=== PATIENT | female | born 1965 | race Caucasian/White ===

== ENCOUNTER 2016-07-07 00:28 | Observation (INO) | payer BC ==
[~2016-07-07] VITALS: Ht 165.1 cm; Wt 113.6 kg
[~2016-07-07 00:28] MED LIST: LEVO25TA PO; OXYC-57 PO
[2016-07-07 00:57] LABS: BASO % 0.6 %; BASO ABS # 0.04 K/uL (0-0.2); COMPLETE YES; EOS % 5.6 %; IG% 0.1 %; LYMPH % 40.9 %; LYMPH ABS # 2.91 K/uL (1.2-3.4); MEAN CELL VOLUME 86.6 fL (80-100); MEAN CORPUSCULAR HEMOGLOBIN 28.9 pg (25-34); MEAN CORPUSCULAR HGB CONC 33.4 g/dl (32-36); MEAN PLATELET VOLUME 9.8 fL (7.4-10.4); MONO % 6.6 %; NEUT % 46.2 %; PLATELET COUNT 230 K/uL (130-400); RED BLOOD COUNT 4.39 M/uL (4.2-5.4); WHITE BLOOD COUNT 7.11 K/uL (4.8-10.8)
[2016-07-07] MEDS ORDERED: OPTIRAY 320 IV PRN (01:00)
[2016-07-07 01:04] LABS: ISTAT HEMOGLOBIN 12.9 g/dl (12.0-16.0); ISTAT IONIZED CALCIUM 1.27 mmol/l (1.12-1.32)
[2016-07-07 01:14] LABS: ALT/SGPT 33 U/L (12-78); AST/SGOT 18 U/L (15-37); BLOOD UREA NITROGEN 15 mg/dl (7-18); BUN/CREATININE RATIO 15.2 (10-20); CALCIUM 8.7 mg/dl (8.5-10.1); CARBON DIOXIDE 25 mmol/L (21-32); CHLORIDE 108 mmol/L (98-107); GLUCOSE 107 mg/dl (70-99); SODIUM 143 mmol/L (136-145)
[2016-07-07 01:19] LABS: ALKALINE PHOSPHATASE 97 U/L (45-117)
[2016-07-07] MEDS ORDERED: LIDOCAINE HCL 2% VISC SOLN 20 ML UDC PO STA (02:20)
[2016-07-07] MEDS ORDERED: ALUMINUM/MAGNESIUM SUSP 30 ML UDC PO STA (02:20)
[2016-07-07] MEDS ORDERED: PANTOprazole SOD 40 MG TAB PO STA ×2 (02:20→03:17)
[2016-07-07] MEDS ORDERED: KETOROLAC TROMETHAMINE 30 MG/ML VIAL IV STA (02:26)
[2016-07-07] MEDS ORDERED: DiphenhydrAMINE HCL 50 MG/ML VIAL IV STA (02:26)
[2016-07-07] MEDS ORDERED: METOCLOPRAMIDE HCL INJ 5 MG/ML 2 ML VIAL IV STA (02:26)
--- NOTE | 2016-07-07 02:35 | EMERGENCY ROOM VISIT NOTE ---
History First contact with patient: 00:34 Chief Complaint: CHEST PAIN Stated Complaint: CHEST PAIN Nursing Triage Summary: c/o a lim for a few days and earlier tonight awoke with a lim and left sided neck pain. while at work developed mid sternal cp rates pain at 3 at present. History of Present Illness The patient is a 50 year old female who presents to the Emergency Room with complaints of midsternal chest pain that radiates to her back and to her left shoulder since 11:30 at night while at work. 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 Patient states for the past 3 days she's had some mild headaches with neck pain and cough and puffy eyes. She states tonight she got nauseous with the chest pain and was concerned and came here. She describes pain as pressure, 4-10 to the mid chest. Nothing makes it better or worse. She has some mild dyspnea. Her father from a thoracic aneurysm. She's not had an echocardiogram or stress test. She's had SVT in the past. Patient denies fever , chills, abdominal pain, leg pain, recent travel, tobacco use, vomiting, diarrhea. Patient says she chronically has some mild leg swelling unchanged. No family history of blood clots. Review of Systems See HPI for pertinent positives & negatives. A total of 10 systems reviewed and were otherwise negative. 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) (3) Depression (4) Hirsutism (5) Hypothyroidism (6) Kidney stone (7) Metabolic syndrome X (8) Migraine headache (9) SVT (supraventricular tachycardia) Surgical Problems: (1) Status post cholecystectomy (2) Status post tubal ligation Family History Cancer Social History Smoking Status: Never Smoker Smokeless Tobacco Use: No Alcohol Use: none Drug Use: none Marital Status: Housing Status: lives with family Occupation Status: employed Current/Historical Medications Scheduled Levothyroxine Sodium (Synthroid), 37.5 MCG PO DAILY Allergies Coded Allergies: No Known Allergies (Unverified , 07/07/16) Physical Exam Vital Signs Date Time Temp Pulse Resp B/P Pulse Ox O2 Delivery O2 Flow Rate FiO2 07/07/16 01:39 74 18 117/69 95 Room Air 07/07/16 00:48 83 18 153/93 96 Room Air 07/07/16 00:42 85 07/07/16 00:41 96 Room Air 07/07/16 00:41 95 Room Air 07/07/16 00:32 36.6 81 18 151/96 96 Room Air Physical Exam VITALS: Vitals are noted on the nurse's note and reviewed by myself. Vital signs stable. GENERAL: Pleasant female, in no acute distress, nondiaphoretic, well-developed well-nourished. SKIN: The skin was without rashes, erythema, edema, or bruising. There is no tenting of the skin. Capillary reflex less than 2 seconds. HEAD: Normocephalic atraumatic. EARS: External auditory canals clear, tympanic membranes pearly mccall without erythema or effusion bilaterally. EYES: Pupils equal round and reactive to light and accommodation. Conjunctivae without injection, sclerae without icterus. Extraocular movements intact. NOSE: Patent, turbinates without inflammation or discharge. MOUTH: Mucous membranes moist. Pharynx without erythema or exudate. Uvula midline. Airway patent. Tongue does not deviate. NECK: Supple without nuchal rigidity. No lymphadenopathy. No thyromegaly. Cervical spine is nontender. No JVD. HEART: Regular rate and rhythm without murmurs gallops or rubs. Chest nontender to palpation LUNGS: Clear to auscultation bilaterally without wheezes, rales or rhonchi. No dullness to percussion. No retractions or accessory muscle use. ABDOMEN: Positive bowel sounds x 4. Normal tympanic percussion. Soft, nontender, without masses or organomegaly. Carter sign negative. No guarding or rebound tenderness. MUSCULOSKELETAL: No muscle atrophy, erythema, or edema noted. NEURO: Patient was alert and oriented to person place and time. Normal sensation to light and sharp touch. No focal neurological deficits. Medical Decision & Procedures Laboratory Results 07/07/16 00:43 Red Blood Count 4.39, Mean Corpuscular Volume 86.6, Mean Corpuscular Hemoglobin 28.9, Mean Corpuscular Hemoglobin Concent 33.4, Mean Platelet Volume 9.8, Neutrophils (%) (Auto) 46.2, Lymphocytes (%) (Auto) 40.9, Monocytes (%) (Auto) 6.6, Eosinophils (%) (Auto) 5.6, Basophils (%) (Auto) 0.6, Neutrophils # (Auto) 3.28, Lymphocytes # (Auto) 2.91, Monocytes # (Auto) 0.47, Eosinophils # (Auto) 0.40, Basophils # (Auto) 0.04 07/07/16 00:43 Test 07/07/16 00:43 07/07/16 00:47 White Blood Count 7.11 K/uL (4.8-10.8) Red Blood Count 4.39 M/uL (4.2-5.4) Hemoglobin 12.7 g/dL (12.0-16.0) Hematocrit 38.0 % (37-47) Mean Corpuscular Volume 86.6 fL (80-100) Mean Corpuscular Hemoglobin 28.9 pg (25-34) Mean Corpuscular Hemoglobin Concent 33.4 g/dl (32-36) Platelet Count 230 K/uL (130-400) Mean Platelet Volume 9.8 fL (7.4-10.4) Neutrophils (%) (Auto) 46.2 % Lymphocytes (%) (Auto) 40.9 % Monocytes (%) (Auto) 6.6 % Eosinophils (%) (Auto) 5.6 % Basophils (%) (Auto) 0.6 % Neutrophils # (Auto) 3.28 K/uL (1.4-6.5) Lymphocytes # (Auto) 2.91 K/uL (1.2-3.4) Monocytes # (Auto) 0.47 K/uL (0.11-0.59) Eosinophils # (Auto) 0.40 K/uL (0-0.5) Basophils # (Auto) 0.04 K/uL (0-0.2) RDW Standard Deviation 46.0 fL (36.4-46.3) RDW Coefficient of Variation 14.4 % (11.5-14.5) Immature Granulocyte % (Auto) 0.1 % Immature Granulocyte # (Auto) 0.01 K/uL (0.00-0.02) Est Creatinine Clear Calc Drug Dose 82.7 ml/min Estimated GFR () 75.0 Estimated GFR (Non- 64.7 BUN/Creatinine Ratio 15.2 (10-20) Calcium Level 8.7 mg/dl (8.5-10.1) Total Bilirubin 0.3 mg/dl (0.2-1) Direct Bilirubin < 0.1 mg/dl (0-0.2) Aspartate Amino Transf (AST/SGOT) 18 U/L (15-37) Alanine Aminotransferase (ALT/SGPT) 33 U/L (12-78) Alkaline Phosphatase 97 U/L (45-117) Troponin I < 0.015 ng/ml (0-0.045) Total Protein 7.3 gm/dl (6.4-8.2) Albumin 3.4 gm/dl (3.4-5.0) Lipase 213 U/L (73-393) Bedside Hemoglobin 12.9 g/dl (12.0-16.0) Bedside Hematocrit 38 % (37-47) Bedside Sodium 142 mEq/L (135-144) Bedside Potassium 4.0 mEq/L (3.3-5.0) Bedside Chloride 105 mEq/L (101-112) Bedside Total CO2 24 mEq/l (24-31) Anion Gap 18.0 mmol/L (16-25) Bedside Blood Urea Nitrogen 16 mg/dl (7-18) Bedside Creatinine 1.0 mg/dl (0.6-1.3) Bedside Glucose (other) 106 mg/dl (70-99) Bedside Ionized Calcium (Ciera) 1.27 mmol/l (1.12-1.32) Medications Administered Medications (Trade) Dose Ordered Sig/Kezia Route Start Time Stop Time Status Last Admin Dose Admin Lidocaine HCl (Viscous Lidocaine 2% Soln) 10 ml NOW STAT PO 07/07/16 02:20 07/07/16 02:21 DC 07/07/16 02:29 10 ML Al Hydroxide/Mg Hydroxide (Maalox Susp) 30 ml NOW STAT PO 07/07/16 02:20 07/07/16 02:21 DC 07/07/16 02:29 30 ML Pantoprazole Sodium (Protonix Tab) 40 mg NOW STAT PO 07/07/16 02:20 07/07/16 02:21 DC 07/07/16 02:29 40 MG ED Course Prior records/ancillary studies reviewed. Triage Nursing notes reviewed. The patient's history was concerning for chest pain. Differential diagnosis: Etiologies such as cardiac ischemia, aortic dissection, pulmonary embolism, pneumonia, pneumothorax, musculoskeletal, infections, pericarditis, myocarditis , esophageal rupture, gastrointestinal, as well as others were entertained. Physical examination: As above. ER treatment provided: Patient was observed On reassessment the patient felt better. Diagnostic interpretation by me: The electrocardiogram was negative for pathologic change. Normal sinus, normal intervals, no acute ST-T wave changes. Impression normal sinus rhythm interpreted by myself The labs revealed negative troponin Imaging studies: Chest x-ray with no acute consolidation or pneumothorax or free air per my interpretation CTA CHEST: No evidence of aortic aneurysm or dissection. Mild platelike and dependent atelectasis. Lungs otherwise clear. No pleural effusion Mediastinal lymph nodes measuring up to 1.1 cm cm in short axis at right upper paratracheal region, which is mildly enlarged. Question mild distal esophageal thickening, which may be related to reflux esophagitis. Post cholecystectomy. Mild hepatic steatosis. Degenerative changes of thoracic spine Radiologist: Edward Meeks MD Consultation: A consultation was placed with the hospitalist, Dr Carlson. The case was discussed and diagnostics were reviewed. The patient was evaluated in the ER for further treatment. Exam and history seem consistent with chest pain with concerns for cardiac in etiology. Patient was given a GI cocktail and Protonix for possible reflux on CT imaging. She was medicated for her headache. Patient was short of breath and got nauseous with the pain. It radiated to her back and to her shoulder. She will be evaluated by medicine for further evaluation and workup. By the evaluation outlined above emergent etiologies such as aortic dissection, pulmonary embolism, pneumonia, pneumothorax, infections, pericarditis, myocarditis, as well as others were deemed relatively unlikely. The pt informed about the findings as listed above. All questions were answered and pleased with the treatment. case reviewed with my Attending Medical Decision As above Impression Primary Impression: Substernal precordial chest pain Additional Impressions: Esophagitis Headache Departure Information Dispostion Being Evaluated By Hospitalist Condition FAIR Referrals Demian Alegria M.D. (PCP) Patient Instructions [facility] Problem Qualifiers
[2016-07-07 02:56] VITALS: O2SAT 95
[2016-07-07] MEDS ORDERED: LORAZEPAM 2 MG/ML 1 ML VIAL IV PRN (03:15)
[2016-07-07] MEDS ORDERED: ONDANSETRON INJ 2 MG/ML 2 ML VIAL IV SCH (03:15)
[2016-07-07] MEDS ORDERED: TRAMADOL HCL 50 MG TAB PO PRN (03:15)
[2016-07-07] MEDS ORDERED: NITROGLYCERIN 0.4 MG SL PER TAB CHARGE SL PRN (03:15)
[2016-07-07] MEDS ORDERED: ACETAMINOPHEN 325 MG TAB PO PRN (03:15)
[2016-07-07] MEDS ORDERED: MoRPHine SULFATE 4 MG/ML 1 ML CARP\\VIAL IV PRN (03:15)
[2016-07-07] MEDS ORDERED: ASPIRIN 325 MG ECTAB PO STA (03:16)
[2016-07-07] MEDS ORDERED: IV FLUIDS COMPLETED PRN (03:30)
[2016-07-07 04:07] VITALS: BP 124/83; PULSE 68; TEMP 36.7; Ht 165.1 cm; Wt 113.6 kg
[2016-07-07] MEDS ORDERED: SODIUM CHLORIDE 0.45% 1000ML 1,000 ML IV SCH (04:30)
[2016-07-07 04:43] LABS: INR 0.9 (0.9-1.1)
[2016-07-07 04:45] LABS: PREG INTERNAL NEGATIVE QC NEG CLEAR BACKGROUND; PREG INTERNAL POSITIVE QC POS CONTROL LINE
--- NOTE | 2016-07-07 05:46 | HISTORY & PHYSICAL EXAMINATION ---
DATE OF ADMISSION: 07/07/2016 PRIMARY CARE PHYSICIAN: Dr. Alegria. CHIEF COMPLAINT: Chest pain. HISTORY OF PRESENT ILLNESS: Medical history significant for migraine, past tobacco abuse, history of PSVTsp ablation, hyperlipidemia, anxiety disorder, GERD, kidney stones. Past few days, patient noted frontal headache symptoms similar to migraine attack. She also had some neck pain. Today, patient had left-sided chest pain described as heaviness, with some shortness of breath. No fever, no chills, no cough. Some improvement with GI cocktail given in the Emergency Room. Headache resolved after IV Toradol at the ER. MEDICAL HISTORY: As above. SURGERIES: She has had section, cholecystectomy, foot surgery, tubal ligation. HOME MEDICATIONS: Include Synthroid. ALLERGIES: No known drug allergies. FAMILY HISTORY: Heart disease. 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 REVIEW OF SYSTEMS: As per HPI, all other ROS negative. PHYSICAL EXAMINATION: VITAL SIGNS: Blood pressure was noted to be 151/96 and later 110/69, pulse 80 RR 18 T 37, sats 96 on room air. GENERAL: Noted to be comfortable, no respiratory distress, obese. SKIN: Normal color. HEENT: [place] palpebral conjunctivae. Dry mucosa. NECK: Short neck. LUNGS: Decreased breath sounds. HEART: RRR. No anterior chest wall tenderness. ABDOMEN: Some distention, non tender. EXTREMITIES: No edema. no tenderness NEUROLOGIC: No gross focality. LABS: Hemoglobin was noted to be 12.7, hematocrit 38, white cell count 11, platelets 230. Sodium was noted to be 140, potassium 4, chloride 108, CO2 of 25, BUN 15, creatinine 1, glucose 107. trop 0 CTA initial read showed no dissection, cholecystectomy, hepatic steatosis, mild distal esophageal thickening, esophagitis, mediastinal lymph nodes enlargement. EKG rate of 80, normal sinus rhythm, ischemia. ASSESSMENT: 1. Atypical chest pain, possibly from GERD esophagitis on initial CT read some response to GI cocktail given at the ER Rule out acute coronary syndrome given some personal risk factors for ischemic heart disease 2. history of supraventricular tachycardia status post ablation 3. hyperlipidemia as per records 4. hypothyroidism, euthyroid as of today's TSH 5. past tobacco abuse. 6. migraine PORRAS resolved w/ NSAID given at the ER PLAN: Observation PCU ASA for now for CAD prevention until ACS is ruled out stress echo if AM troponin is normal. PPI for GERD DVT prophylaxis. Lovenox SQ Full code. MTDD
[2016-07-07] MEDS ORDERED: LEVOTHYROXINE 75 MCG TAB PO SCH (06:00)
[2016-07-07 07:06] LABS: CHOLESTEROL 144 mg/dl (0-200); CHOLESTEROL/HDL RATIO 5.5; HDL CHOLESTEROL 26 mg/dl; TRIGLYCERIDES 442 mg/dl (0-150)
--- NOTE | 2016-07-07 07:22 | DIAGNOSTIC IMAGING REPORT ---
CHEST CTA for AORTIC DISSECTION CT DOSE: 1436.30 mGycm HISTORY: Atypical chest pain. Short of breath. TECHNIQUE: Multiaxial CT images of the chest were performed both before and after the intravenous administration of contrast to evaluate the aorta. Maximal intensity projection images were also obtained. COMPARISON STUDY: None. FINDINGS: Normal caliber thoracic aorta with no evidence for dissection. The main pulmonary arteries are patent. There is right paratracheal lymphadenopathy. Dominant right paratracheal lymph node measures 17 x 12 mm. No hilar lymphadenopathy. No pleural or pericardial effusions. Cholecystectomy. Hepatic steatosis. The visualized spleen and adrenal glands are unremarkable. No pneumothorax. No focal lung consolidations. Mild bibasilar subsegmental atelectasis. There is suggestion the 1.1 cm hypodense lesion within the pancreatic neck. IMPRESSION: 1. No evidence for aortic aneurysm or dissection. 2. Mild right paratracheal lymphadenopathy. This could be reactive or due to a lymphoproliferative disorder. 3. Suggestion of a 1.1 cm hypodense lesion within the pancreatic neck. This could represent a volume averaging with adjacent fat. However, dedicated pancreatic CT is recommended on a nonemergent basis for confirmation. Electronically signed by: Horacio Dent M.D. 07/07/2016 7:20 AM Dictated Date/Time: 07/07/2016 7:12 AM
[2016-07-07 07:31] VITALS: BP 125/80; PULSE 75; TEMP 36.5; O2SAT 95
--- NOTE | 2016-07-07 07:59 | DIAGNOSTIC IMAGING REPORT ---
CHEST ONE VIEW PORTABLE HISTORY: Atypical CHEST PAIN COMPARISON: Chest 06/26/2014. FINDINGS: Linear density at the left lung base consistent with subsegmental atelectasis. The lungs are otherwise clear. The heart is normal in size. No pleural effusions. No pneumothorax. IMPRESSION: No acute process. Electronically signed by: Horacio Dent M.D. 07/07/2016 7:57 AM Dictated Date/Time: 07/07/2016 7:57 AM
[2016-07-07] MEDS ORDERED: ENOXAPARIN 40 MG/0.4 ML SYR SC SCH (09:00)
[2016-07-07] MEDS ORDERED: PERFLUTREN LIPID MICROSPHERE (DEFINITY) IV ONE (12:41)
--- NOTE | 2016-07-07 13:11 | EXERCISE STRESS ECHO ---
*NOTICE TO RECEIVING REPUBLICAN AGENCY This information is strictly Confidential and protected under [place] law. [place] law prohibits you from making any further disclosure of this information unless further disclosure is expressly permitted by the written consent of the person to whom it pertains or is authorized by law. A general authorization for the release of medical or other information is not sufficient for this purpose. Hospital accepts no responsibility if the information is made available to any other person, INCLUDING THE PATIENT. Interpretation Summary * Name: DUKE TA Study Date: 07/07/2016 09:50 AM BP: 119/81 mmHg * Patient Location: [facility] HR: 66 * : 1965 (M/d/yyyy) Gender: Female Height: 65 in * Age: 50 yrs Ethnicity: CA Weight: 250 lb * Ordering Physician: Héctor Carlson * Referring Physician: MATT * Performed By: Rosa Maria Rivas RDCS * * Reason For Study: CHEST PAIN * BSA: 2.2 m2 * History: CHEST PAIN * -- Conclusions -- * Normal stress echocardiogram at 7.9 METS and 95% maximum predicted. * No exercise induced chest pain. * No ECG changes. * Baseline echocardiogram notes normal left ventricular systolic function and no significant valvular pathology. Procedure Details * A contrast injection of Definity was performed to improve assessment of LV function. * Contrast was injected into an intravenous site in the left arm. * One vial of Definity ultrasound contrast was diluted in normal saline to a total volume of 10 ml. A total of '4' ml of solution was administered during imaging. * Lot # [id number] of Definity utilized for procedure. * Expiration date 1 JUN 19. * The attending nurse who injected the contrast agent was BRIAN JONES RN. Left Ventricle * The left ventricle is normal in size. * There is borderline concentric left ventricular hypertrophy. * Ejection Fraction = 55-60%. * Left ventricular systolic function is normal. * Resting wall motion: Normal. Stress wall motion: Appropriate increase in Left ventricular systolic function and decrease in cavity size. No stress induced segmental wall motion abnormalities. Right Ventricle * The right ventricle is not well visualized. * The right ventricular systolic function is normal as assessed by tricuspid annular plane systolic excursion (TAPSE) (normal >1.5 cm). Atria * The left atrium is mildly dilated. * Right atrial size is normal. * Interatrial septum not well seen. Mitral Valve * The mitral valve anatomy is normal. * There is no mitral valve stenosis. * Significant mitral regurgitation is absent. Tricuspid Valve * The tricuspid valve anatomy is normal. * There is no tricuspid stenosis. * There is trace tricuspid regurgitation. Aortic Valve * The aortic valve is normal in structure and function. * No hemodynamically significant valvular aortic stenosis. * No aortic regurgitation is present. Pulmonic Valve * The pulmonary valve is not well seen, but the Doppler examination is normal without significant regurgitation or stenosis. Great Vessels * The aortic root and proximal ascending aorta are normal sized. * The pulmonary is not well visualized. Pericardium * There is no pericardial effusion. Stress Parameters * Normal baseline electrocardiogram. * Stress ECG: No ST changes. No arrhythmias. * The stress portion of this study was personally supervised by the undersigned interpreting physician. * Rest heart rate was '66' BPM. * Rest blood pressure was '119/81' * Maximum heart rate achieved was 162 bpm. * Maximum heart rate was 96 % of maximum age-predicted heart rate. * Maximum blood pressure was '178/71' * Total exercise time was '6:36' * Maximum exercise MET level achieved was '7.90' METS * Maximum treadmill speed was '3.40' miles per hour. * Maximum treadmill elevation was '14.00'% grade. * Exercise was terminated due to 'ACHIEVING TARGET HR' MMode 2D Measurements and Calculations IVSd 1.1 cm IVSs 1.6 cm LVIDd 5.1 cm LVIDs 3.8 cm LVPWd 1.2 cm LVPWs 2.0 cm IVS/LVPW 0.96 FS 26.1 % EDV(Teich) 124.6 ml ESV(Teich) 61.3 ml EF(Teich) 50.9 % EDV(cubed) 133.8 ml ESV(cubed) 54.1 ml EF(cubed) 59.6 % % IVS thick 43.1 % % LVPW thick 69.7 % LV mass(C)d 235.6 grams LV mass(C)dI 108.3 grams/m\S\2 LV mass(C)s 302.1 grams LV mass(C)sI 138.9 grams/m\S\2 SV(Teich) 63.4 ml SI(Teich) 29.1 ml/m\S\2 SV(cubed) 79.7 ml SI(cubed) 36.7 ml/m\S\2 Ao root diam 3.1 cm Ao root area 7.5 cm\S\2 LA dimension 3.1 cm LA/Ao 1.0 LVAd ap4 35.4 cm\S\2 LVLd ap4 8.2 cm EDV(MOD-sp4) 127.2 ml EDV(sp4-el) 129.1 ml LVAs ap4 22.0 cm\S\2 LVLs ap4 7.1 cm ESV(MOD-sp4) 57.1 ml ESV(sp4-el) 57.4 ml EF(MOD-sp4) 55.1 % EF(sp4-el) 55.6 % SV(MOD-sp4) 70.2 ml SI(MOD-sp4) 32.3 ml/m\S\2 SV(sp4-el) 71.7 ml SI(sp4-el) 33.0 ml/m\S\2 Doppler Measurements and Calculations MV E max patel 80.0 cm/sec MV A max patel 60.1 cm/sec MV E/A 1.3 MV dec time 0.24 sec Ao V2 max 116.4 cm/sec Ao max PG 5.4 mmHg Ao max PG (full) 3.0 mmHg LV V1 max PG 2.5 mmHg LV V1 max 78.6 cm/sec
--- NOTE | 2016-07-07 13:41 | Discharge Summary ---
Discharge Summary Date of Service Jul 07, 2016. Discharge Summary Admission Date: Jul 07, 2016 at 02:47 Discharge Date: Jul 07, 2016 Discharge Disposition: Home Principal Diagnosis: CHEST PAIN /ATYPICAL FOR ANGINA /NEGATIVE STRESS TEST Procedures: EXERCISE CARDIAC STRESS TEST : 07/07/16 Normal stress echocardiogram at 7.9 METS and 95% maximum predicted. * No exercise induced chest pain. * No ECG changes. * Baseline echocardiogram notes normal left ventricular systolic function and no significant valvular pathology. Medication Reconciliation Continued Medications: Levothyroxine Sodium (Synthroid) 25 Mcg Tab 37.5 MCG PO DAILY, TAB Referrals At Discharge Follow up Referrals: Physician Referral - 07/12/16 with Floridalma Reeves D.O. Admission Information HPI (per Admitting provider): DATE OF ADMISSION: 07/07/2016 PRIMARY CARE PHYSICIAN: Dr. Alegria. CHIEF COMPLAINT: Chest pain. HISTORY OF PRESENT ILLNESS: Medical history significant for migraine, past tobacco abuse, history of PSVTsp ablation, hyperlipidemia, anxiety disorder, GERD, kidney stones. Past few days, patient noted frontal headache symptoms similar to migraine attack. She also had some neck pain. Today, patient had left-sided chest pain described as heaviness, with some shortness of breath. No fever, no chills, no cough. Some improvement with GI cocktail given in the Emergency Room. Headache resolved after IV Toradol at the ER. MEDICAL HISTORY: As above. SURGERIES: She has had section, cholecystectomy, foot surgery, tubal ligation. HOME MEDICATIONS: Include Synthroid. ALLERGIES: No known drug allergies. FAMILY HISTORY: Heart disease. 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 Physical Exam (per Admitting): REVIEW OF SYSTEMS: As per HPI, all other ROS negative. PHYSICAL EXAMINATION: VITAL SIGNS: Blood pressure was noted to be 151/96 and later 110/69, pulse 80 RR 18 T 37, sats 96 on room air. GENERAL: Noted to be comfortable, no respiratory distress, obese. SKIN: Normal color. HEENT: [place] palpebral conjunctivae. Dry mucosa. NECK: Short neck. LUNGS: Decreased breath sounds. HEART: RRR. No anterior chest wall tenderness. ABDOMEN: Some distention, non tender. EXTREMITIES: No edema. no tenderness NEUROLOGIC: No gross focality. Hospital Course no complain of chest pain SOB had cardiac stress test earlier , no chest heaviness, no SOB during or after stress test feels fine no headache exercise stress test negative for stress induced ischemia stable to be discharged home today P/E: EXAM ; no sign of distress HEENT: sclera non icteric LUNGS: CTA HT: regular S1/S2 abdomen : soft. non tender Ext ; no rash or deformity Neuro: no focal deficit A/P : Atypical chest pain no evidence of ACS presented with burning discomfort in central chest area relieved with GI cocktail EKG no ischemic change serial cardiac markers negative negative cardiac stress test possibly from GERD pt mentions of having burning sensation in epigastric area and lower abdomen - worse after eating spicy food had similar episode in last April-took Tums which helped with symptom ordered for PPI -Omeprazole 20 mg Daily avoid spicy food, limit caffeine in meals out patient follow up with Family physician Hypothyroidism TSH wnl cont Synthroid Migraine PORRAS chronic takes over the counter meds pt asked to take med with full stomach as most of the over the counter meds - has NSAID's FULL CODE DISPOSITION : Discharge home today Discharge Instructions Discharge Instructions Date of Service Jul 07, 2016. Admission Reason for Admission: Substernal Precordial Chest Pain Discharge Discharge Diagnosis / Problem: CHEST PAIN /ATYPICAL FOR ANGINA /NEGATIVE STRESS TEST Discharge Goals Goal(s): Improve disease control, Diagnostic testing, Therapeutic intervention Activity Recommendations Activity Limitations: resume your previous activity . Instructions / Follow-Up Instructions / Follow-Up HOSPITAL FOLLOW UP WITH DR FLORIDALMA REEVES AT [facility] ON Tuesday07/12/16 @ 12: 50 PM Current Hospital Diet Patient's current hospital diet: AHA Diet (Heart Healthy) Discharge Diet Recommended Diet: AHA Diet (Heart Healthy) Pending Studies Studies pending at discharge: no Laboratory Results Lipid Panel Test 07/07/16 06:05 Range/Units Triglycerides Level 442 H 0-150 mg/dl Cholesterol Level 144 0-200 mg/dl HDL Cholesterol 26 mg/dl Cholesterol/HDL Ratio 5.5 LDL Cholesterol, Calculated mg/dl Medical Emergencies . Who to Call and When: Medical Emergencies: If at any time you feel your situation is an emergency, please call 911 immediately. . Non-Emergent Contact Non-Emergency issues call your: Primary Care Provider . . "Provider Documentation" section prepared by Loan Harding. VTE Core Measure Inpt VTE Proph given/why not?: Unfractionated heparin SQ Additional Copies To Demian Alegria M.D.
--- NOTE | 2016-07-07 13:44 | Discharge Instructions ---
Discharge Instructions Date of Service Jul 07, 2016. Admission Reason for Admission: Substernal Precordial Chest Pain Discharge Discharge Diagnosis / Problem: CHEST PAIN /ATYPICAL FOR ANGINA /NEGATIVE STRESS TEST Discharge Goals Goal(s): Improve disease control, Diagnostic testing, Therapeutic intervention Activity Recommendations Activity Limitations: resume your previous activity . Instructions / Follow-Up Instructions / Follow-Up HOSPITAL FOLLOW UP WITH DR AIME REEVES AT [facility] ON Tuesday07/12/16 @ 12: 50 PM Current Hospital Diet Patient's current hospital diet: AHA Diet (Heart Healthy) Discharge Diet Recommended Diet: AHA Diet (Heart Healthy) Pending Studies Studies pending at discharge: no Laboratory Results Lipid Panel Test 07/07/16 06:05 Range/Units Triglycerides Level 442 H 0-150 mg/dl Cholesterol Level 144 0-200 mg/dl HDL Cholesterol 26 mg/dl Cholesterol/HDL Ratio 5.5 LDL Cholesterol, Calculated mg/dl Medical Emergencies . Who to Call and When: Medical Emergencies: If at any time you feel your situation is an emergency, please call 911 immediately. . Non-Emergent Contact Non-Emergency issues call your: Primary Care Provider . . "Provider Documentation" section prepared by Loan Harding. VTE Core Measure Inpt VTE Proph given/why not?: Unfractionated heparin SQ
[2016-07-07 13:51] VITALS: BP 125/80; PULSE 75; TEMP 36.5; O2SAT 95
[2016-07-07] MEDS ORDERED: OMEP20TA PO (14:10)
[2016-07-08] MEDS ORDERED: PANTOprazole SOD 40 MG TAB PO SCH (09:00)
[2016-07-08] MEDS ORDERED: ASPIRIN 325 MG ECTAB PO SCH (09:00)
== END 2016-07-07 14:19 | disposition home or self-care (01) ==
LOC: ENRESERVTM → ENRESERVDT → C.EDB 00:29 → C.2E 02:47
PROVIDERS: ADMIT Hospitalist; ATTEND Hospitalist
DX: R07.89 Other chest pain (principal); G43.909 Migraine, unspecified, not intractable, without status migrainosus; R06.02 Shortness of breath; E03.9 Hypothyroidism, unspecified; Z51.81 Encounter for therapeutic drug level monitoring; Z79.899 Other long term (current) drug therapy; Z98.890 Other specified postprocedural states; Z87.442 Personal history of urinary calculi; Z87.891 Personal history of nicotine dependence; Z82.49 Family history of ischemic heart disease and other diseases of the circulatory system

== ENCOUNTER 2017-05-16 00:12 | Emergency (ER) | payer OTHER ==
[~2017-05-16] VITALS: Ht 165.1 cm; Wt 116.2 kg
[2017-05-16 00:12] VITALS: TEMP 36.5; Ht 165.1 cm; Wt 116.2 kg
[~2017-05-16 00:12] MED LIST changes: -LEVO25TA5 PO
--- NOTE | 2017-05-16 00:35 | EMERGENCY ROOM VISIT NOTE ---
History Report prepared by Erik: Samantha Long Under the Supervision of: Laura MataO. First contact with patient: 00:16 Chief Complaint: FALL Stated Complaint: FALL History of Present Illness The patient is a 51 year old female who presents to the Emergency Room with complaints of an episode of a fall occurring just prior to arrival. The patient was shoveling snow when her left foot slid outwards on ice and she fell onto her right knee. When she fell, she tried to catch herself with her right arm. She states her arm gave out and she hit her nose on the pavement. She notes some upper back pain, right shoulder pain with lifting, and right knee soreness but denies any leg, elbow, wrist, or hip pain. She denies any loss of consciousness. The patient notes a mild headache after the fall which has now resided. She is not on any blood thinners. Pt denies change in vision, fevers, chest pain, shortness of breath, nausea, vomiting, diarrhea, pain with urination , and melena. Source of History: patient Onset: just prior to arrival Position: other (generalized) Quality: other (fall) Timing: other (episode) Associated Symptoms: + back pain, No LOC, No headache, No chest pain, No SOB , No nausea, No vomiting, No abdominal pain, No diarrhea Review of Systems See HPI for pertinent positives & negatives. A total of 10 systems reviewed and were otherwise negative. 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) (3) Depression (4) Hirsutism (5) Hypothyroidism (6) Kidney stone (7) Metabolic syndrome X (8) Migraine headache (9) SVT (supraventricular tachycardia) Surgical Problems: (1) Status post cholecystectomy (2) Status post tubal ligation Family History Cancer Social History Smoking Status: Never Smoker Alcohol Use: none Drug Use: none Marital Status: Housing Status: lives with family Occupation Status: employed Current/Historical Medications Scheduled Levothyroxine Sodium (Levothyroxine Sodium), 25 MG PO Q2D Levothyroxine Sodium (Levothyroxine Sodium), 50 MG PO Q2D Allergies Coded Allergies: No Known Allergies (Unverified , 05/16/17) Physical Exam Vital Signs Date Time Temp Pulse Resp B/P (MAP) Pulse Ox O2 Delivery O2 Flow Rate FiO2 05/16/17 03:15 80 16 150/97 95 05/16/17 01:36 87 18 154/94 94 Room Air 05/16/17 00:12 36.5 98 16 152/100 95 Room Air Physical Exam GENERAL: alert, well appearing, well nourished, no distress, non-toxic FACE: Small amount of swelling and erythema at distal aspect of nose, no epistaxis. EYE EXAM: normal conjunctiva, PERRL and EOM's grossly intact OROPHARYNX: no exudate, no erythema, lips, buccal mucosa, and tongue normal and mucous membranes are moist NECK: supple, no nuchal rigidity, no adenopathy, non-tender LUNGS: Clear to auscultation. Normal chest wall mechanics HEART: no murmurs, S1 normal and S2 normal ABDOMEN: abdomen soft, non-tender, normo-active bowel sounds, no masses, no rebound or guarding. BACK: Back is symmetrical on inspection and there is no deformity, no midline tenderness, no CVA tenderness. SKIN: no rashes and no bruising EXTREMITIES: Tenderness along anterior aspect of humoral head, no obvious dislocation or deformity, no other bony tenderness of right upper extremity, normal distal pulses, sensation intact, normal ROM at elbow and wrist, normal tendon function at hand, normal cap refill. Left upper extremity normal. Left lower extremity normal. Right lower extremity has minor superficial abrasion at right knee, no obvious joint effusion or deformity, slight decreased ROM secondary to pain. NEURO EXAM: Normal sensorium, cranial nerves II-XII grossly intact, normal speech, no gross weakness of arms, no gross weakness of legs. Medical Decision & Procedures ER Provider Diagnostic Interpretation: Radiology results have been interpreted by me. Cervical spine X-ray: no acute fracture or subluxation Right Knee X-ray: no acute fracture or dislocation. Right Shoulder X-ray: no acute fracture or dislocation. Thoracic Spine X-ray: no acute fracture or subluxation. Medications Administered Medications (Trade) Dose Ordered Sig/Kezia Route Start Time Stop Time Status Last Admin Dose Admin Acetaminophen (Tylenol Tab) 1,000 mg NOW STAT PO 05/16/17 02:28 05/16/17 02:29 DC 05/16/17 02:34 1,000 MG ED Course 0018: The patient was evaluated in room A11B. A complete history and physical exam was performed. 0229: I updated the patient on her test results. She is resting comfortably. 0303: Upon reevaluation, the patient is feeling better. I discussed the findings and the treatment plan with the patient. She verbalizes agreement and understanding. The patient was discharged home. Medical Decision Differential diagnosis: Etiologies such as fracture, dislocation, intra-abdominal, pneumothorax, intrathoracic , intracranial, neurologic, as well as other traumatic pathologies were entertained. Pt well appearing here despite complaints. I have a low suspicion for any additional occult traumatic injury. Pt not anticoagulated, no head/spine/trunk trauma. Pt plans of following up with employer and file appropriate workmans comp paperwork. Pain controlled here with medication, patient given a sling for comfort. Discussed close follow-up with family doctor or women's, cessation physician. Discussed symptoms to watch and return for, she verbalized understanding was agreeable with plan. Medication Reconcilliation Current Medication List: was personally reviewed by me Blood Pressure Screening Patient's blood pressure: Elevated blood pressure Blood pressure disposition: Elevated BP felt to be situational Impression Primary Impression: Fall Additional Impressions: Shoulder pain, acute Abrasion Contusion Scribe Attestation The scribe's documentation has been prepared under my direction and personally reviewed by me in its entirety. I confirm that the note above accurately reflects all work, treatment, procedures, and medical decision making performed by me. Departure Information Dispostion Home / Self-Care Referrals Demian Alegria M.D. (PCP) Forms HOME CARE DOCUMENTATION FORM, IMPORTANT VISIT INFORMATION Patient Instructions My [facility] Additional Instructions Please follow-up with your [employer] supervisor and fill out appropriate forms for your employer as this happened on the job. You may use tylenol and ibuprofen as needed for pain. Please drink plenty of water. Do not take ibuprofen on an empty stomach. If you have any worsening pain, develop increased swelling, numbness/tingling, headaches, dizziness, vomiting, vision changes, trouble breathing, increased neck/back pain, or you have any other new concerns, please return to the emergency room. Problem Qualifiers Primary Impression: Fall Encounter type: initial encounter Qualified Codes: W19.XXXA - Unspecified fall, initial encounter Additional Impressions: Shoulder pain, acute Laterality: right Qualified Codes: M25.511 - Pain in right shoulder Contusion Encounter type: initial encounter Contusion area: knee Laterality: right Qualified Codes: S80.01XA - Contusion of right knee, initial encounter
[2017-05-16] MEDS ORDERED: ACETAMINOPHEN 500 MG TAB PO STA (02:28)
[2017-05-16] MEDS ORDERED: LEVO25TA5 PO ×2 (02:38→02:39)
[2017-05-16 03:15] VITALS: BP 150/97; PULSE 80; O2SAT 95
--- NOTE | 2017-05-16 06:42 | DIAGNOSTIC IMAGING REPORT ---
R SHOULDER MIN 2 VIEWS ROUTINE CLINICAL HISTORY: trauma, pain pain COMPARISON: None. DISCUSSION: Moderate degenerative changes acromioclavicular as well as glenohumeral joints. Minimal calcific supraspinatus tendinitis. No evidence for fracture or dislocation. There is no evidence for soft tissue swelling. IMPRESSION: Moderate degenerative change. No acute bony abnormality. The above report was generated using voice recognition software. It may contain grammatical, syntax or spelling errors. Electronically signed by: Stevo Abdalla M.D. 05/16/2017 6:41 AM Dictated Date/Time: 05/16/2017 6:40 AM
--- NOTE | 2017-05-16 06:49 | DIAGNOSTIC IMAGING REPORT ---
R KNEE 1 OR 2 VIEWS ROUTINE HISTORY: 51 years-old Female trauma acute right knee pain status post fall COMPARISON: None available TECHNIQUE: 2 views of the right knee FINDINGS: There is mild medial and lateral with moderate patellofemoral compartment osteoarthritis. Fabella is noted along with additional corticated ossifications posterior to the knee measuring up to 1.4 cm. There are linear calcifications within the distribution of the femoral fibers lateral collateral ligament measuring up to 3 mm which may be dystrophic. No acute fracture or dislocation identified. No large joint effusion identified. IMPRESSION: 1. No acute fracture or dislocation. 2. Tricompartment osteoarthritis, most pronounced within the patellofemoral compartment where there is moderate disease. The above report was generated using voice recognition software. It may contain grammatical, syntax or spelling errors. Electronically signed by: Michele Loredo M.D. 05/16/2017 6:47 AM Dictated Date/Time: 05/16/2017 6:45 AM
--- NOTE | 2017-05-16 07:16 | DIAGNOSTIC IMAGING REPORT ---
THORACIC SPINE 3 VIEWS ROUTINE HISTORY: 51 years-old Female trauma, pain upper thoracic spine acute back pain status post fall COMPARISON: CTA of the chest 07/07/2016 TECHNIQUE: 3 views of the thoracic spine FINDINGS: No acute fracture or subluxation. Multilevel endplate spurring and facet arthrosis. No compression deformity. Mild convex right curvature of the midthoracic spine. Soft tissues and lung garza appear unremarkable. IMPRESSION: No acute fracture or subluxation. The above report was generated using voice recognition software. It may contain grammatical, syntax or spelling errors. Electronically signed by: Michele Loredo M.D. 05/16/2017 7:14 AM Dictated Date/Time: 05/16/2017 7:13 AM
--- NOTE | 2017-05-16 07:45 | DIAGNOSTIC IMAGING REPORT ---
CERVICAL SPINE 5 VIEWS CLINICAL HISTORY: Fall. FINDINGS: AP, lateral, bilateral oblique, and odontoid views of the cervical spine are obtained. No prior studies are available for comparison at the time of dictation. The skeletal structures are osteopenic. There is no radiographic evidence of fracture or malalignment. The odontoid process and lateral masses appear intact as seen on the open-mouth view. Advanced productive degenerative change is identified at the atlantodental articulation. The spinolaminar line is preserved. Vertebral body height and alignment are maintained. Anterior osteophytes are seen in the lower cervical region. The spinous processes are intact. Mild disc space narrowing is seen at C6-C7 and C7-T1. A posterior disc osteophyte complex at C6-C7 may contribute to mild acquired compromise of the central canal. Mild neural foraminal stenosis is suggested bilaterally in the mid to lower cervical region, greatest from C3-C4 through C6-C7. The prevertebral soft tissues are within normal limits. The imaged apical lung parenchyma appears clear. IMPRESSION: 1. There is no radiographic evidence of fracture or subluxation involving the cervical spine. 2. Osteopenia and mild spondylotic change as above. Dictated: 05/16/2017 7:16 AM Transcribed: 05/16/2017 7:45 AM [email or web address] Electronically signed by: Harpal Knapp M.D. 05/16/2017 8:26 AM Dictated Date/Time: 05/16/2017 7:16 AM
== END 2017-05-16 03:15 | disposition home or self-care (01) ==
LOC: EDBD 00:12 → C.EDA 00:14
DX: M25.511 Pain in right shoulder (principal); S80.211A Abrasion, right knee, initial encounter; M54.6 Pain in thoracic spine; W00.0XXA Fall on same level due to ice and snow, initial encounter; Y93.H1 Activity, digging, shoveling and raking; Y99.0 Civilian activity done for income or pay; E03.9 Hypothyroidism, unspecified; Z80.9 Family history of malignant neoplasm, unspecified

== ENCOUNTER → 2017-05-16 | Outpatient (CLI) | payer OTHER ==
[~2017-05-16] MED LIST changes: +LEVO25TA5 PO; +OMEP20TA PO; -OXYC-57 PO
--- NOTE | 2017-05-16 16:45 | DIAGNOSTIC IMAGING REPORT ---
NASAL BONES MIN 3 VIEWS CLINICAL HISTORY: Nasal pain. Fall. COMPARISON STUDY: None. FINDINGS: Tiny nondisplaced fracture at the tip of the nasal bones. Nasal soft tissue swelling. IMPRESSION: Tiny nondisplaced fracture at the tip of the nasal bones. Electronically signed by: Horacio Dent M.D. 05/16/2017 4:44 PM Dictated Date/Time: 05/16/2017 4:41 PM
== END | disposition home or self-care (01) ==
LOC: C.RAD1850 16:06
PROVIDERS: ATTEND Nurse Practitioner Adult Health
DX: J34.89 Other specified disorders of nose and nasal sinuses (principal); W19.XXXA Unspecified fall, initial encounter